=== PATIENT | male | born 1995 | race Caucasian/White ===

== ENCOUNTER 2017-08-21 07:56 | Emergency (ER) | payer OTHER ==
--- NOTE | 2017-08-21 08:37 | ED ---
General Adult HPI - General Chief complaint: Seizure Stated complaint: SEIZURE Time Seen by Provider: 08/21/17 08:25 Source: EMS, RN notes reviewed Mode of arrival: EMS Limitations: no limitations - History of Present Illness Initial comments: Patient 22-year-old male presents to the emergency room today by EMS, the chief complaint of a seizure. Patient does admit to a seizure history and takes Keppra. Patient currently at [facility] for heroin abuse. Patient has been there for over 2 weeks. Patient woke up early this morning to take his medication at 4:30. Since next thing he remembers is waking up in the ambulance. Admits his last seizure was approximately a month ago. Patient does admit that he's had some cough congestion with sputum production that been green in color. Patient denies any other complaints or symptoms. Patient denies any recent fever, chills, shortness of breath, chest pain, back pain, abdominal pain, nausea or vomiting, numbness or tingling, dysuria or hematuria, constipation or diarrhea, headaches or visual changes, or any other complaints. - Related Data Home Medications Medication Instructions Recorded Confirmed Acetaminophen [Tylenol 8 Hour] 650 mg PO Q4H PRN MDD 6 TABS 08/21/17 08/21/17 Calcium 1000mg/[id number] 1 tab PO TID PRN 08/21/17 08/21/17 Chlorpheniramine Maleate 4 mg PO Q4H PRN MDD 4 TABS 08/21/17 08/21/17 [Chlor-Trimeton] Ibuprofen [Motrin] 600 mg PO Q6HR PRN 08/21/17 08/21/17 Ondansetron [Zofran] 4 mg IM Q6H PRN 08/21/17 08/21/17 busPIRone HCl [Buspar] 10 mg PO DIRECTED PRN 08/21/17 08/21/17 cloNIDine HCL [Catapres] 0.1 mg PO Q4H PRN 08/21/17 08/21/17 levETIRAcetam [Keppra] 500 mg PO BID@0600,1730 08/21/17 08/21/17 traZODone HCL 50 - 150 mg PO HS 08/21/17 08/21/17 Previous Rx's Medication Instructions Recorded Fluticasone Propionate [Flonase 1 - 2 spray EA NOSTRIL DAILY 5 08/21/17 Allergy Relief] Days ml Allergies Allergy/AdvReac Type Severity Reaction Status Date / Time sertraline HCl [From Zoloft] Allergy Intermediate Rash/Hives Verified 08/21/17 08:09 coconut Allergy Unknown Verified 08/21/17 08:09 shellfish derived [Shrimp] Allergy Unknown Verified 08/21/17 08:09 Review of Systems ROS Statement: Those systems with pertinent positive or pertinent negative responses have been documented in the HPI. ROS Other: All systems not noted in ROS Statement are negative. Past Medical History Past Medical History: Seizure Disorder Additional Past Medical History / Comment(s): Hepatitis C History of Any Multi-Drug Resistant Organisms: None Reported Additional Past Surgical History / Comment(s): testicular sx Past Psychological History: Bipolar, Depression Smoking Status: Current every day smoker Past Alcohol Use History: Rare Past Drug Use History: Cocaine, Heroin, IV Drug Use, Marijuana General Exam - General Exam Comments Initial Comments: General: The patient is awake and alert, in no distress, and does not appear acutely ill. Eye: Pupils are equal, round and reactive to light, extra-ocular movements are intact. No nystagmus. There is normal conjunctiva bilaterally. No signs of icterus. Ears, nose, mouth and throat: There are moist mucous membranes and no oral lesions. Neck: The neck is supple, there is no tenderness or JVD. Cardiovascular: There is a regular rate and rhythm. No murmur, rub or gallop is appreciated. Respiratory: Lungs are clear to auscultation, respirations are non-labored, breath sounds are equal. No wheezes, stridor, rales, or rhonchi. Musculoskeletal: Normal ROM, no tenderness. Strength 5/5. Sensation intact. Pulses equal bilaterally 2+. Neurological: A&O x 3. CN II-XII intact, There are no obvious motor or sensory deficits. Coordination appears grossly intact. Speech is normal. Skin: Skin is warm and dry and no rashes or lesions are noted. Psychiatric: Cooperative, appropriate mood & affect, normal judgment. Limitations: no limitations Course Vital Signs 08/21/17 08:00 Temperature 98.2 F Pulse Rate 94 Respiratory 18 Rate Blood Pressure 125/74 O2 Sat by Pulse 99 Oximetry Medical Decision Making - Medical Decision Making Patient reexamined at this time shows no signs of distress. Patient's labs been reviewed mildly elevated liver enzymes. This was discussed with the patient. Patient is advised to follow-up the family doctor. Keppra level is pending. At this time patient has no complaint. His chest x-rays clear. He has had some cough congestion will be treated with Flonase for sinus infection. Advised to follow-up with the family doctor and return for any other concerns. - Lab Data Result diagrams: 08/21/17 08:14 08/21/17 08:14 Lab Results 08/21/17 08/21/17 Range/Units 08:14 08:14 WBC 9.6 (3.8-10.6) k/uL RBC 4.99 (4.30-5.90) m/uL Hgb 14.1 (13.0-17.5) gm/dL Hct 42.4 (39.0-53.0) % MCV 85.1 (80.0-100.0) fL MCH 28.2 (25.0-35.0) pg MCHC 33.2 (31.0-37.0) g/dL RDW 14.2 (11.5-15.5) % Plt Count 173 (150-450) k/uL Neutrophils % 76 % Lymphocytes % 15 % Monocytes % 7 % Eosinophils % 1 % Basophils % 0 % Neutrophils # 7.3 (1.3-7.7) k/uL Lymphocytes # 1.5 (1.0-4.8) k/uL Monocytes # 0.7 (0-1.0) k/uL Eosinophils # 0.1 (0-0.7) k/uL Basophils # 0.0 (0-0.2) k/uL Sodium 146 H (137-145) mmol/L Potassium 4.6 (3.5-5.1) mmol/L Chloride 107 (98-107) mmol/L Carbon Dioxide 22 (22-30) mmol/L Anion Gap 17 mmol/L BUN 13 (9-20) mg/dL Creatinine 0.67 (0.66-1.25) mg/dL Est GFR (CKD-EPI)AfAm >90 (>60 ml/min/1.73 sqM) Est GFR (CKD-EPI)NonAf >90 (>60 ml/min/1.73 sqM) Glucose 86 (74-99) mg/dL Calcium 9.6 (8.4-10.2) mg/dL Total Bilirubin 0.4 (0.2-1.3) mg/dL AST 94 H (17-59) U/L ALT 164 H (21-72) U/L Alkaline Phosphatase 77 (38-126) U/L Total Protein 7.4 (6.3-8.2) g/dL Albumin 4.2 (3.5-5.0) g/dL Disposition Clinical Impression: Generalized seizure, Sinusitis Disposition: HOME SELF-CARE Condition: Good Instructions: Sinusitis (ED) Additional Instructions: Please use medication as discussed. Please follow-up with family doctor in the next 2 days. Please return to emergency room if the symptoms increase or worsen or for any other concerns. Prescriptions: Fluticasone Propionate [Flonase Allergy Relief] 1 - 2 spray EA NOSTRIL DAILY 5 Days ml Is patient prescribed a controlled substance at d/c from ED?: No Referrals: None,Stated [Primary Care Provider] - 1-2 days Time of Disposition: 10:05
[2017-08-21 08:49] LABS: Basophils % (A) 0 %; Eosinophils # (A) 0.1 k/uL (0-0.7); Eosinophils % (A) 1 %; HCT 42.4 % (39.0-53.0); HGB 14.1 gm/dL (13.0-17.5); Lymphocytes # (A) 1.5 k/uL (1.0-4.8); Lymphocytes % (A) 15 %; MCH 28.2 pg (25.0-35.0); MCHC 33.2 g/dL (31.0-37.0); MCV 85.1 fL (80.0-100.0); Mean Platelet Volume 7.4; Monocytes # (A) 0.7 k/uL (0-1.0); Monocytes % (A) 7 %; Neutrophils # (A) 7.3 k/uL (1.3-7.7); Neutrophils % (A) 76 %; Platelet Count 173 k/uL (150-450); RBC 4.99 m/uL (4.30-5.90); RDW 14.2 % (11.5-15.5); WBC 9.6 k/uL (3.8-10.6)
--- NOTE | 2017-08-21 08:53 | XR ---
EXAMINATION TYPE: XR chest 2V DATE OF EXAM: 08/21/2017 COMPARISON: 09/12/2014 TECHNIQUE: PA and lateral views submitted. HISTORY: Seizure and cough FINDINGS: The lungs are clear and there is no pneumothorax, pleural effusion, or focal pneumonia. IMPRESSION: 1. No acute process.
[2017-08-21 09:05] LABS: Albumin 4.2 g/dL (3.5-5.0); Anion Gap 17 mmol/L; Calcium 9.6 mg/dL (8.4-10.2); Carbon Dioxide 22 mmol/L (22-30); Chloride 107 mmol/L (98-107); Glucose 86 mg/dL (74-99); Sodium 146 mmol/L (137-145); Total Bilirubin 0.4 mg/dL (0.2-1.3); Total Protein 7.4 g/dL (6.3-8.2)
[2017-08-21 09:06] LABS: Potassium 4.6 mmol/L (3.5-5.1)
[2017-08-21 09:07] LABS: ALT 164 U/L (21-72); AST 94 U/L (17-59); Alkaline Phosphatase 77 U/L (38-126); Blood Urea Nitrogen 13 mg/dL (9-20)
[2017-08-21] MEDS ORDERED: levETIRAcetam IV 1,000 MG in SALINE 1 100ML.BAG IVPB STA (10:43)
--- NOTE | 2017-08-21 12:12 | ED ---
Medical Decision Making - Medical Decision Making Case discussed in detail with attending physician Dr. Banegas. Patient was seen here in the emergency room for a seizure that occurred prior to arrival at [facility]. Patient was seen and observed for over 2 hours. Patient was then discharged and in the waiting room waiting for his ride had a second seizure. Patient was brought back into the emergency room given a loading dose of his Keppra thousand milligrams IV. Patient has been observed for another 2 hours and is doing well at this time. States it was like to be discharged. States feels fine. Patient Keppra level is pending as it is a send out. He is advised to follow-up in the next 2 days with family physician about his Keppra and any need for an adjustment. Advised return here to emergency room if any symptoms increase or worsen or for any other concerns. He states understanding. - Lab Data Result diagrams: 08/21/17 08:14 08/21/17 08:14 Lab Results 08/21/17 08/21/17 Range/Units 08:14 08:14 WBC 9.6 (3.8-10.6) k/uL RBC 4.99 (4.30-5.90) m/uL Hgb 14.1 (13.0-17.5) gm/dL Hct 42.4 (39.0-53.0) % MCV 85.1 (80.0-100.0) fL MCH 28.2 (25.0-35.0) pg MCHC 33.2 (31.0-37.0) g/dL RDW 14.2 (11.5-15.5) % Plt Count 173 (150-450) k/uL Neutrophils % 76 % Lymphocytes % 15 % Monocytes % 7 % Eosinophils % 1 % Basophils % 0 % Neutrophils # 7.3 (1.3-7.7) k/uL Lymphocytes # 1.5 (1.0-4.8) k/uL Monocytes # 0.7 (0-1.0) k/uL Eosinophils # 0.1 (0-0.7) k/uL Basophils # 0.0 (0-0.2) k/uL Sodium 146 H (137-145) mmol/L Potassium 4.6 (3.5-5.1) mmol/L Chloride 107 (98-107) mmol/L Carbon Dioxide 22 (22-30) mmol/L Anion Gap 17 mmol/L BUN 13 (9-20) mg/dL Creatinine 0.67 (0.66-1.25) mg/dL Est GFR (CKD-EPI)AfAm >90 (>60 ml/min/1.73 sqM) Est GFR (CKD-EPI)NonAf >90 (>60 ml/min/1.73 sqM) Glucose 86 (74-99) mg/dL Calcium 9.6 (8.4-10.2) mg/dL Total Bilirubin 0.4 (0.2-1.3) mg/dL AST 94 H (17-59) U/L ALT 164 H (21-72) U/L Alkaline Phosphatase 77 (38-126) U/L Total Protein 7.4 (6.3-8.2) g/dL Albumin 4.2 (3.5-5.0) g/dL Disposition Clinical Impression: Generalized seizure, Sinusitis Disposition: HOME SELF-CARE Condition: Good Instructions: Sinusitis (ED) Additional Instructions: Please use medication as discussed. Please follow-up with family doctor in the next 2 days. Please return to emergency room if the symptoms increase or worsen or for any other concerns. Prescriptions: Fluticasone Propionate [Flonase Allergy Relief] 1 - 2 spray EA NOSTRIL DAILY 5 Days ml levETIRAcetam [Keppra] 500 mg PO Q12HR #20 tab Is patient prescribed a controlled substance at d/c from ED?: No Referrals: None,Stated [Primary Care Provider] - 1-2 days Time of Disposition: 12:11
[2017-08-21 12:32] VITALS: BP 126/71; PULSE 83; RESP 16; TEMP 97.9
== END 2017-08-21 12:42 | disposition home or self-care (01) ==
LOC: EC 07:56
DX: G40.909 Epilepsy, unspecified, not intractable, without status epilepticus (principal); J32.9 Chronic sinusitis, unspecified; F31.9 Bipolar disorder, unspecified; R05 Cough; R74.8 Abnormal levels of other serum enzymes; F17.200 Nicotine dependence, unspecified, uncomplicated; Z79.899 Other long term (current) drug therapy; Z88.8 Allergy status to other drugs, medicaments and biological substances; Z91.013 Allergy to seafood; Z91.018 Allergy to other foods
CPT/HCPCS: 36415; 80053; 80177; 85025; 71046; 99284; 96374; J1953